=== PATIENT | female | born 1985 | race African-American/Black ===

== ENCOUNTER → 2020-09-30 11:35 | Outpatient (CLI) | payer OTHER, SELFPAY ==
--- NOTE | 2020-09-30 11:37 | DI.RAD.S_ITS ---
PROCEDURE: XR LUMBAR SPINE 2-3V INDICATIONS: low back pain TECHNIQUE: 3 views of the lumbar spine were acquired. COMPARISON: None. FINDINGS: Bones: 5 [id number] vertebrae are present. There is normal bony alignment. No vertebral body compression fractures. No suspicious bony lesions. Soft tissues: Overlying bowel gas pattern is normal. No suspicious soft tissue calcifications. 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 No compression fracture seen. Dictated by: Ernesto Casanova M.D. on 09/30/2020 at 12:47 Approved by: Ernesto Casanova M.D. on 09/30/2020 at 12:47
[2020-09-30 12:49] LABS: Hematocrit 40.9 % (36-46); Hemoglobin 13.7 g/dL (12.0-16.0); Mean Corpuscular HGB Conc 33.6 % (30-36); Mean Corpuscular Hemoglobin 25.9 PG (26-34); Mean Corpuscular Volume 77.2 fL (80-100); Platelet Count 240 X10^3/uL (150-400); Red Blood Cell Count 5.29 X10^6/uL (4.0-5.2); Red Cell Distribution Width 14.7 % (11.6-14.8); White Blood Cell Count 8.1 X10^3/uL (4.5-11.0)
[2020-09-30 13:17] LABS: Alanine Aminotransferase 37 IU/L (<35); Albumin 4.5 g/dL (3.5-5.0); Albumin Globulin Ratio 1.2 (1.0-2.8); Alkaline Phosphatase 72 U/L (38-126); Aspartate Aminotransferase 33 IU/L (14-36); BUN Creatinine Ratio 21.8 (6-22); Bilirubin Total 0.3 mg/dL (0.2-1.3); Blood Urea Nitrogen 12 mg/dL (7-17); Calcium 9.3 mg/dL (8.4-10.2); Carbon Dioxide 26 mmol/L (22-32); Chloride 103 mmol/L (98-107); Cholesterol 172 mg/dL (140-199); Estimated Glomerular Filt Rate > 60.0 mL/min (>60); Globulin 3.7 g/dL (1.7-4.1); Glucose 89 mg/dL (70-100); HDL Cholesterol 49 mg/dL (40-60); HEMOLYSIS < 15 (0-50); LDL Cholesterol Calculated 108 mg/dL (<100); Potassium 3.8 mmol/L (3.4-5.1); Sodium 138 mmol/L (137-145); Total Protein 8.2 g/dL (6.3-8.2); Triglycerides 77 mg/dL (35-150)
== END ==
PROVIDERS: PCP Nurse Practitioner Family; Referring Provider Nurse Practitioner Family; Visit Provider Nurse Practitioner Family
DX: Z00.00 Encounter for general adult medical examination without abnormal findings (principal); M54.5 Low back pain; Z13.6 Encounter for screening for cardiovascular disorders
CPT/HCPCS: 36415; 72100; 80053; 80061; 85027

== ENCOUNTER → 2020-12-23 07:52 | Outpatient (CLI) | payer OTHER, SELFPAY ==
[2020-12-23 09:05] LABS: Hemoglobin A1C% w Est Avg Glu 5.4 % (4.0-6.0)
[2020-12-23 09:06] LABS: Basophils Absolute Auto 0 /uL (0-100); Basophils Percent Auto 0.4 % (0-2); Eosinophils Absolute Auto 300 /uL (0-450); Eosinophils Percent Auto 2.9 % (2-4); Hematocrit 38.1 % (36-46); Hemoglobin 12.5 g/dL (12.0-16.0); Lymphocytes Absolute Auto 4000 /uL (1100-4500); Lymphocytes Percent Auto 39.9 % (25-40); Mean Corpuscular HGB Conc 32.9 % (30-36); Mean Corpuscular Hemoglobin 25.4 PG (26-34); Mean Corpuscular Volume 77.1 fL (80-100); Monocytes Absolute Auto 600 /uL (0-900); Monocytes Percent Auto 5.6 % (3-14); Neutrophils Absolute Auto 5100 /uL (1500-7000); Neutrophils Percent Auto 51.2 % (50-75); Red Blood Cell Count 4.94 X10^6/uL (4.0-5.2); Red Cell Distribution Width 14.7 % (11.6-14.8)
[2020-12-23 09:09] LABS: Alanine Aminotransferase 30 IU/L (<35); Albumin Globulin Ratio 1.3 (1.0-2.8); Alkaline Phosphatase 57 U/L (38-126); Aspartate Aminotransferase 27 IU/L (14-36); BUN Creatinine Ratio 15.9 (6-22); Bilirubin Total 0.3 mg/dL (0.2-1.3); Blood Urea Nitrogen 10 mg/dL (7-17); Carbon Dioxide 28 mmol/L (22-32); Chloride 105 mmol/L (98-107); Estimated Glomerular Filt Rate > 60.0 mL/min (>60); Globulin 3.1 g/dL (1.7-4.1); Glucose 108 mg/dL (70-100); HEMOLYSIS < 15 (0-50); Potassium 3.8 mmol/L (3.4-5.1); Sodium 139 mmol/L (137-145); Total Protein 7.1 g/dL (6.3-8.2)
[2020-12-23 09:16] LABS: Add Manual Diff / Slide Review SLIDE REVIEW
[2020-12-23 09:46] LABS: Platelet Estimate Adequate on smear
[2020-12-23 09:47] LABS: Hypochromasia 1+; Microcytosis 1+
[2020-12-23 09:48] LABS: Platelet Count 178 X10^3/uL (150-400)
== END ==
PROVIDERS: PCP Nurse Practitioner Family; Referring Provider Physician Assistant; Visit Provider Physician Assistant
DX: L83 Acanthosis nigricans (principal); D48.5 Neoplasm of uncertain behavior of skin
CPT/HCPCS: 36415; 80053; 83036; 85025

== ENCOUNTER → 2021-02-13 09:08 | Outpatient (CLI) | payer OTHER, SELFPAY ==
[2021-02-13 09:56] LABS: Add Manual Diff / Slide Review NO; Basophils Absolute Auto 0 /uL (0-100); Basophils Percent Auto 0.4 % (0-2); Eosinophils Absolute Auto 100 /uL (0-450); Hemoglobin 12.7 g/dL (12.0-16.0); Lymphocytes Absolute Auto 2900 /uL (1100-4500); Lymphocytes Percent Auto 27.6 % (25-40); Mean Corpuscular HGB Conc 32.7 % (30-36); Mean Corpuscular Hemoglobin 25.3 PG (26-34); Mean Corpuscular Volume 77.4 fL (80-100); Monocytes Absolute Auto 700 /uL (0-900); Monocytes Percent Auto 6.4 % (3-14); Neutrophils Absolute Auto 6700 /uL (1500-7000); Neutrophils Percent Auto 64.6 % (50-75); Platelet Count 269 X10^3/uL (150-400); Red Blood Cell Count 5.04 X10^6/uL (4.0-5.2); Red Cell Distribution Width 15.3 % (11.6-14.8); White Blood Cell Count 10.4 X10^3/uL (4.5-11.0)
[2021-02-13 10:31] LABS: Appearance Urine UA CLEAR; Bilirubin Urine UA NEGATIVE (NEGATIVE); Color Urine UA YELLOW; Glucose Urine UA NEGATIVE (Negative); Ketones Urine UA NEGATIVE (NEGATIVE); Leukocyte Esterase Urine UA NEGATIVE (NEGATIVE); Nitrite Urine UA NEGATIVE (Negative); Occult Blood Urine UA 2+ (Negative); Protein Urine UA NEGATIVE (Negative); Urobilinogen Urine UA 0.2 E.U./dL (0.2)
[2021-02-13 10:35] LABS: WBC Urine None Seen (0-5/HPF)
[2021-02-13 10:44] LABS: Amorphous Sediment Urine 3+; Bacteria Urine Many (>30); Mucus Urine 1+ (Negative); RBC Urine 1-5/HPF (0-5/HPF); Squamous Epithelial Cell Urine 5-10 /HPF (0-5/HPF)
[2021-02-13 13:20] LABS: Hepatitis B Surface Antigen NEGATIVE s/c (NEGATIVE); Rubella Antibody IgG 29.6 IU/mL (>15)
[2021-02-13 13:54] LABS: Culture Indicated Urine Cult Not Indicated
[2021-02-13 17:30] LABS: HIV 1 & 2 Ab/Ag 4th Gen Combo NEGATIVE (NEGATIVE); Hep C Virus Ab w/Reflex Quant NEGATIVE s/c (NEGATIVE)
[2021-02-14 07:48] LABS: RPR Screen Non Reactive (Non Reactive)
[2021-02-14 09:58] LABS: Varicella IgG Antibody 705 index (Immune >165)
[2021-02-15 08:43] LABS: Chlamydia trachomatis NAA Negative (Negative); Neisseria gonorrhoeae NAA Negative (Negative)
== END ==
PROVIDERS: PCP Nurse Practitioner Family; Referring Provider Specialist; Visit Provider Specialist
DX: Z34.81 Encounter for supervision of other normal pregnancy, first trimester (principal)
CPT/HCPCS: 36415; 80055; 81003; 81015; 86787; 86803; 86850; 86900; 86901; 87086; 87389; 87491; 87591

== ENCOUNTER → 2021-02-27 13:33 | Outpatient (CLI) | payer OTHER, SELFPAY | PROVIDERS: PCP Nurse Practitioner Family; Referring Provider Specialist; Visit Provider Specialist | DX: O09.529 Supervision of elderly multigravida, unspecified trimester (principal) | CPT/HCPCS: 36415; 81420 ==

== ENCOUNTER → 2021-03-06 13:13 | Outpatient (CLI) | payer OTHER, SELFPAY ==
[2021-03-06 16:05] LABS: Appearance Urine UA SL CLOUDY; Bilirubin Urine UA NEGATIVE (NEGATIVE); Color Urine UA YELLOW; Glucose Urine UA NEGATIVE (Negative); Ketones Urine UA 1+ (NEGATIVE); Leukocyte Esterase Urine UA NEGATIVE (NEGATIVE); Nitrite Urine UA NEGATIVE (Negative); Occult Blood Urine UA 1+ (Negative); Protein Urine UA TRACE (Negative); Specific Gravity Urine UA 1.015 (1.000-1.035); Urobilinogen Urine UA 0.2 E.U./dL (0.2)
[2021-03-06 16:11] LABS: Amorphous Sediment Urine 1+; Bacteria Urine Many (>30); Mucus Urine 2+ (Negative); RBC Urine 1-5/HPF (0-5/HPF); Squamous Epithelial Cell Urine 5-10 /HPF (0-5/HPF); WBC Urine 5-10/HPF (0-5/HPF)
[2021-03-06 16:12] LABS: Culture Indicated Urine Specimen Cultured
== END ==
PROVIDERS: PCP Nurse Practitioner Family; Referring Provider Specialist; Visit Provider Specialist
DX: Z34.90 Encounter for supervision of normal pregnancy, unspecified, unspecified trimester (principal); R31.9 Hematuria, unspecified
CPT/HCPCS: 81001; 87086

== ENCOUNTER → 2021-03-18 11:52 | Outpatient (ROUT) | payer OTHER, SELFPAY ==
[2021-03-18 13:49] LABS: Urine N gonorrhoeae NOT DETECTED
[2021-03-18 13:50] LABS: Urine Chlamydia NOT DETECTED
== END ==
PROVIDERS: PCP Nurse Practitioner Family; Visit Provider Specialist
DX: Z34.02 Encounter for supervision of normal first pregnancy, second trimester (principal); Z3A.14 14 weeks gestation of pregnancy
CPT/HCPCS: 87491; 87591

== ENCOUNTER 2021-04-24 09:14 | Inpatient (IN) | payer OTHER, SELFPAY ==
[2021-04-24] MEDS: OXYTOCIN PREMIX 30 UNIT/500 ML PLAST..BAG IV (10:44)
[2021-04-24] MEDS: LACTATED RINGERS 1,000 ML 100 ML IV ×2 (10:44→14:46)
[2021-04-24] MEDS: CEFAZOLIN 1 GM VIAL IV (10:53)
[2021-04-24 11:41] LABS: Add Manual Diff / Slide Review NO; Basophils Absolute Auto 0 /uL (0-100); Basophils Percent Auto 0.3 % (0-2); Eosinophils Absolute Auto 200 /uL (0-450); Eosinophils Percent Auto 1.4 % (2-4); Hematocrit 35.9 % (36-46); Hemoglobin 11.9 g/dL (12.0-16.0); Lymphocytes Absolute Auto 2000 /uL (1100-4500); Lymphocytes Percent Auto 14.7 % (25-40); Mean Corpuscular HGB Conc 33.1 % (30-36); Mean Corpuscular Hemoglobin 25.5 PG (26-34); Monocytes Absolute Auto 1000 /uL (0-900); Monocytes Percent Auto 7.5 % (3-14); Neutrophils Absolute Auto 10400 /uL (1500-7000); Neutrophils Percent Auto 76.1 % (50-75); Platelet Count 242 X10^3/uL (150-400); Red Blood Cell Count 4.66 X10^6/uL (4.0-5.2); Red Cell Distribution Width 15.3 % (11.6-14.8); White Blood Cell Count 13.6 X10^3/uL (4.5-11.0)
[2021-04-24] MEDS: fentaNYL 100 MCG/2 ML INJ IV (12:39)
[2021-04-24 12:49] LABS: COVID19 - ADMIT (NP swab/PCR) Negative (Negative)
--- NOTE | 2021-04-24 13:47 | PM.PREOP ---
Pre-operative Note COVID-19 COVID-19 status: Negative Result date/Date tested (Pos, Neg/Pending): 04/24/21 Interval Note History & Physical reviewed/Exam performed by Physician: Yes Changes to H&P: Yes H&P completed within 30 days and has changed as indicated here:: Retained placenta after passage of 19 week nonviable fetus
[2021-04-24 13:48] VITALS: BP 123/72
--- NOTE | 2021-04-24 15:00 | P.HPOB_ITS ---
History of Present Illness History of Present Illness Reason for admission: other (Premature rupture membranes) Narrative: Oralia Fuentes is a 36 year old female admitted for delivery of a nonviable 19 week gestation fetus with premature rupture of membranes. Patient on a routine OB visit complained of some light spotting. She was found to be 4- 5 cm dilated 80% effaced. Patient was given options to attempt cerclage, waiting for spontaneous vaginal delivery, induction of nonviable fetus. Patient went home to think about her options. She began leaking fluid. [facility] Medical History (Updated 04/24/21 @ 15:04 by Sheree Hogue MD) 19 weeks gestation of Allergies (~1990) Asthma (~1992) Chronic back pain (~2015) Dislocation of knee Hay fever Lactose intolerance Low back pain (~2015) Painful menstrual periods Recurrent sinus infections Right shoulder pain (~06/2020) Uneven pigmentation of skin (~2010) Surgical History (Updated 10/01/20 @ 19:48 by Yisel Jones) Anesthesia History of dilation and curettage (~07/05/19) Family History (Updated 02/07/21 @ 12:27 by Gabi Chowdhury RN) Father Diabetes mellitus Grandfather Diabetes mellitus Grandmother Hypertension Grandmother Diabetes mellitus Dementia Mother No problems noted. Grandfather Unknown family medical history Social History marital status: number of children: 0 household members: spouse (Deployed to [place] until 2020.) lives independently: Yes caregiver/support person: No housing: other ([facility]. 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.) occupational status: employed current occupational exposures/hazards: No cinda/anabaptism: [employer] special cinda needs: No seatbelt use: always working smoke detector in home: Yes fire extinguisher in home: Yes carbon monox detector in home: Yes firearms in home: No do you feel safe at home: Yes Smoking Status: Never smoker second hand exposure: No alcohol intake: former (Pre-: 2x/week) substance use type: does not use during the past year weight has: increased > 10 lbs well-balanced diet: daily or most days daily servings fruits/ve-4 caffeine: No Type(s) of exercise: walking and other (Had been doing PT x 1hr twice weekly until recently. Likes elliptical. ) frequency: 3-4 times per week Meds Home Medications and Allergies Home Medications Medication Instructions Recorded Confirmed Type albuterol sulfate 90 mcg/actuation 2 puff INHALATION Q6H PRN #8.5 g 09/20/20 04/22/21 Rx aerosol inhaler diclofenac sodium 1 % topical gel 2 g TOPICAL QID #100 g 09/20/20 04/22/21 Rx doxylamine succinate 25 mg tablet 25 mg PO BEDTIME PRN 02/07/21 04/22/21 History (Unisom (doxylamine)) prenat.vits,rachel,[id number] 1 tab PO DAILY 02/07/21 04/22/21 History pyridoxine (vitamin B6) 50 mg 50 mg PO BID 02/07/21 04/22/21 History tablet ondansetron 4 mg disintegrating 4 mg PO Q6H PRN #20 tab 02/13/21 04/22/21 Rx tablet Allergies Allergy/AdvReac Type Severity Reaction Status Date / Time lactose Allergy Intermediate GI upset & Verified 02/13/21 08:23 diarrhea tomato Allergy Mild Stys to Verified 02/13/21 08:23 eyes Review of Systems Review of Systems Narrative: Patient denies any bleeding or cramping. She has continual wetness in her underwear. No fevers. Exam Vital Signs (past 8 hours): Blood pressure 123/72, pulse 91, temperature 36.6? Narrative Exam Narrative: HEENT exam within normal limits. Lungs are clear to auscultation percussion. Heart is regular rate and rhythm no S3-S4 murmurs. Abdomen is soft, nontender. Uterus is just below the umbilicus and nontender. There are parts in the vaginal canal. Extremities without edema and nontender. Objective Labs Result Diagrams: 04/24/21 10:30 Labs: Laboratory Results - last 24 hr 04/24/21 04/24/21 04/24/21 09:30 10:15 10:30 WBC 13.6 H RBC 4.66 Hgb 11.9 L Hct 35.9 L MCV 77.0 L MCH 25.5 L MCHC 33.1 RDW 15.3 H Plt Count 242 Neut % (Auto) 76.1 H Lymph % (Auto) 14.7 L [place] % (Auto) 7.5 Eos % (Auto) 1.4 L Baso % (Auto) 0.3 Neut # (Auto) 48311 H Lymph # (Auto) 2000 [place] # (Auto) 1000 H Eos # (Auto) 200 Baso # (Auto) 0 SARS-CoV-2 (PCR) Negative Blood Type O Positive Antibody Screen Negative Assessment & Plan Assessment and plan (1) Premature cervical dilation in second trimester: Status: Acute (2) 19 weeks gestation of : Status: Acute (3) PROM with onset of labor more than 24 hours following rupture: Status: Acute Assessment & Plan narrative: Patient with here for delivery of a nonviable 19 week gestation fetus after Pprom. COVID-19 COVID-19 status: Negative Result date/Date tested (Pos, Neg/Pending): 04/24/21
--- NOTE | 2021-04-24 15:08 | PM.OBPRVD ---
Events: Premature Rupture Membrane (19 weeks) Labor & Delivery Delivery date: 04/24/21 Induction method: per pitocin protocol Delivery monitor: none Route of delivery: L&D Laceration Description: None Estimated blood loss (mL): 50 Anesthesia Type: Other (Fentanyl) Narrative: Patient came in with premature rupture of membranes at 19 weeks. She was started on Pitocin. The nonviable male infant delivered in breech presentation vaginally. The placenta did not deliver so she will be taken to the operating room for a curettage. So far there has been no significant vaginal bleeding. Baby 1: Infant gender: Male Presentation: breech Placenta delivery description: Curettage score (1 min): 0 score (5 min): 0 score (10 min): 0 weight: 10 oz Plan for aftercare: Other (Patient will be monitored for bleeding or infection signs with likely home later today.)
[2021-04-24] MEDS: CEFAZOLIN 1 GM VIAL 2 GM IV (15:20)
--- NOTE | 2021-04-24 15:51 | SUR.OPER ---
Lithotomy on padded OR bed, head on pillow, arms secured on padded arm boards at <90 degrees abduction. Legs secured in padded yellow fins stirrups.
[2021-04-24] MEDS: miSOPROStoL 200 MCG TABLET 800 MCG PR (15:57)
--- NOTE | 2021-04-24 15:58 | SUR.OPER ---
Retained placenta specimen sent to OB.
--- NOTE | 2021-04-24 16:10 | PM.OP.1 ---
Operative Date/Time/Diagnoses Date of procedure: 04/24/21 Time of procedure: 16:10 Pre-op diagnosis: Retained placenta post 19 week fetus delivery Post-op diagnosis: same Procedure & Clinicians Procedure: Uterine curettage Same procedure as scheduled: Yes Indications: Retained placenta post 19 week delivery Surgeon: Sheree Hogue Click Yes if Unassisted: Yes Anesthesia Type: General Operative Notes Findings: Retained placenta no vaginal, perineal or cervical tears Closure Type: not applicable Estimated Blood Loss (mL): 1,000 Blood products transfused: none Procedure in detail: Patient was brought to the operating room where [facility] after undergoing general anesthesia. She had 2 g of Ancef in prior to beginning the case. Warming was with blankets. Pulsatile stockings were in place and functional. A check system was reviewed with the staff in the room prior to the procedure. The patient was prepped and draped in the usual sterile fashion. Bladder was drained with an in and out catheter. A speculum placed in vagina and a ring forcep was placed on the anterior lip of the cervix. Curettings were performed until the placenta was loosened and removed. The uterus was curetted until there were no apparent tissue fragments left. Patient received IM and IV Pitocin. She also received rectal 800 micro g of Cytotec. Bleeding seemed to be under control at the end of the case. Patient went to recovery room in stable condition. Counts of instruments and sponges were correct. Complications: none Post-operative Condition: stable Disposition: other ( Center) Plan for aftercare: Monitor for bleeding or evidence of infection. Home when stable.
[2021-04-24 16:16] VITALS: BP 118/64; PULSE 100; RESP 16; TEMP 36.4; O2SAT 97
[2021-04-24 16:21] VITALS: BP 118/65; PULSE 96; RESP 16; O2SAT 96
[2021-04-24 16:26] VITALS: BP 123/79; PULSE 96; RESP 20; O2SAT 97
[2021-04-24 16:31] VITALS: BP 127/72; PULSE 100; RESP 16; TEMP 36.6; O2SAT 96
[2021-04-24] MEDS: IBUPROFEN 600 MG TABLET PO (18:26)
[2021-04-24] MEDS: ACETAMINOPHEN 325 MG TABLET 650 MG PO (18:26)
--- NOTE | 2021-04-24 19:42 | PM.OBDS.1 ---
Discharge Providers Provider Date of admission: 04/24/21 09:14 Discharge Date: 04/24/21 Primary care physician: KYLEE Kelley Consults: 04/24/21 09:38 Consult to Anesthesiology Urgent Comment: Consulting Provider: Anesthesiologist Reason for consultation: epidural Has provider been notified: No Discharge provider: Sheree Hogue MD Summary Hospital Course Date Patient Seen: 04/24/21 Time Patient Seen: 19:43 Diagnoses: 19 week gestation with PPROM, spontaneous vaginal delivery of nonviable fetus, retained placenta requiring uterine curettage Hospital Course: Patient arrived on Labor and delivery after having PPROM from cervical incompetence. IV antibiotics and Pitocin were begun. Peripartum Data Infant Delivery Method: Natural Vaginal Laceration Description: None Procedures: Pitocin augmentation of labor, vaginal delivery of previable fetus, uterine curettage for retained placenta complications: retained placenta 1: Gender: Male Disposition of : (Pre viable) Discharge Diagnosis (1) Premature cervical dilation in second trimester: Status: Acute (2) 19 weeks gestation of : Status: Acute (3) PROM with onset of labor more than 24 hours following rupture: Status: Acute (4) Retained placenta with hemorrhage, condition: Status: Acute Status at Discharge Cognitive/behavioral status at discharge: oriented Functional status at discharge: independent ambulation Overall status at discharge: patient is progressing back to baseline Time Spent with Patient Time attestation: Total time spent providing and/or coordinating discharge services: Time spent: Less than 30 minutes Objective Labs Result Diagrams: 04/24/21 10:30 Labs: Laboratory Results - last 24 hr 04/24/21 04/24/21 04/24/21 09:30 10:15 10:30 WBC 13.6 H RBC 4.66 Hgb 11.9 L Hct 35.9 L MCV 77.0 L MCH 25.5 L MCHC 33.1 RDW 15.3 H Plt Count 242 Neut % (Auto) 76.1 H Lymph % (Auto) 14.7 L [place] % (Auto) 7.5 Eos % (Auto) 1.4 L Baso % (Auto) 0.3 Neut # (Auto) 27593 H Lymph # (Auto) 2000 [place] # (Auto) 1000 H Eos # (Auto) 200 Baso # (Auto) 0 SARS-CoV-2 (PCR) Negative Blood Type O Positive Antibody Screen Negative Exam Vital Signs (past 8 hours): - 04/24/21 13:48 04/24/21 16:16 04/24/21 16:21 Temperature 97.6 F Pulse Rate 100 H 96 H Respiratory Rate 16 16 Blood Pressure 123/72 118/64 118/65 Pulse Oximetry 97 96 04/24/21 16:26 04/24/21 16:31 Temperature 97.8 F Pulse Rate 96 H 100 H Respiratory Rate 20 16 Blood Pressure 123/79 127/72 Pulse Oximetry 97 96 Oxygen Delivery Method Room Air Narrative Exam Narrative: Patient's abdomen is soft, nontender. Uterus is firm, at U -3, nontender. Bleeding is mild. Extremities without edema and nontender. Patient's blood type is O-positive and she is rubella immune Discharge Plan Discharge Plan Patient Disposition: Home Discharge orders & Medications Prescriptions: New hydrocodone-acetaminophen 5-325 mg Tablet 2 tab PO Q4HR PRN (Reason: Pain, Severe (7-10)) Qty: 20 RF: 0 ferrous sulfate 325 mg (65 mg iron) Tablet 325 mg PO DAILY Qty: 30 RF: 0 ibuprofen 600 mg Tablet 600 mg PO Q6HR PRN (Reason: Pain, Mild (1-3)) Qty: 30 RF: 0 Continued prenat.vits,rachel,[id number] Tablet 1 tab PO DAILY RF: 0 pyridoxine (vitamin B6) 50 mg tablet 50 mg PO BID RF: 0 Unisom (doxylamine) 25 mg tablet 25 mg PO BEDTIME PRNRF: 0 diclofenac sodium 1 % gel 2 g topical QID Qty: 100 RF: 0 albuterol sulfate 90 mcg/actuation HFA aerosol inhaler 2 puff inhalation Q6H PRN (Reason: shortness of breath or wheezing) Qty: 8.5 RF: 0 ondansetron 4 mg tablet,disintegrating 4 mg PO Q6H PRN (Reason: nausea and vomiting) Qty: 20 RF: 2 Follow up/Referrals: Sae Win ARNP [Primary Care Provider] - Sheree Hogue MD [Physician] - 2 Weeks Diet/Activity/Treatments Diet: Regular Activity: Nothing in vagina for 4 weeks Skin/Wound/Dressing Care Report to your healthcare provider any signs of infection, such as:: chills, fever and increased pain Discharge Data Primary Care Provider: Sae Win Attending Provider: Sheree Hogue
== END 2021-04-24 20:40 | disposition home or self-care (01) | DRG 797 ==
PROVIDERS: Admitting Provider Specialist; PCP Nurse Practitioner Family; Referring Provider Specialist; Visit Provider Specialist
PROC: 10E0XZZ Delivery of Products of Conception, External Approach (ICD-10-PCS; CPT 58120; principal; 2021-04-24 13:30)
DX: O60.12X0 Preterm labor second trimester with preterm delivery second trimester, not applicable or unspecified (principal); O72.2 Delayed and secondary postpartum hemorrhage; Z37.1 Single stillbirth; Z3A.19 19 weeks gestation of pregnancy; O32.1XX0 Maternal care for breech presentation, not applicable or unspecified; Z20.822 Contact with and (suspected) exposure to COVID-19
CPT/HCPCS: 36415; 59050; 59821; 85025; 86850; 86900; 86901; 87635; C9803; G0378; G0379; J0690; J2405; J2590; J2704; J3010; S0191

== ENCOUNTER → 2021-07-18 13:55 | Outpatient (CLI) | payer OTHER, SELFPAY ==
[2021-07-18 16:56] LABS: Progesterone, Total 9.22 ng/mL
== END ==
PROVIDERS: PCP Nurse Practitioner Family; Referring Provider Specialist; Visit Provider Specialist
DX: N92.6 Irregular menstruation, unspecified (principal)
CPT/HCPCS: 36415; 84144

== ENCOUNTER → 2021-09-29 16:10 | Outpatient (CLI) | payer OTHER, SELFPAY ==
[2021-09-29 17:07] LABS: Hematocrit 37.6 % (36-46); Hemoglobin 12.6 g/dL (12.0-16.0); Mean Corpuscular HGB Conc 33.5 % (30-36); Mean Corpuscular Hemoglobin 25.1 PG (26-34); Mean Corpuscular Volume 75.2 fL (80-100); Platelet Count 264 X10^3/uL (150-400); Red Cell Distribution Width 16.5 % (11.6-14.8); White Blood Cell Count 8.1 X10^3/uL (4.5-11.0)
[2021-09-29 17:09] LABS: Alanine Aminotransferase 24 IU/L (<35); Albumin 4.4 g/dL (3.5-5.0); Albumin Globulin Ratio 1.3 (1.0-2.8); Alkaline Phosphatase 60 U/L (38-126); Aspartate Aminotransferase 27 IU/L (14-36); Bilirubin Total 0.5 mg/dL (0.2-1.3); Blood Urea Nitrogen 12 mg/dL (7-17); Calcium 9.4 mg/dL (8.4-10.2); Carbon Dioxide 30 mmol/L (22-32); Chloride 105 mmol/L (98-107); Cholesterol 133 mg/dL (140-199); Estimated Glomerular Filt Rate > 60.0 mL/min (>60); Globulin 3.4 g/dL (1.7-4.1); Glucose 92 mg/dL (70-100); HDL Cholesterol 49 mg/dL (40-60); HEMOLYSIS < 15 (0-50); LDL Cholesterol Calculated 67 mg/dL (<100); Potassium 3.8 mmol/L (3.4-5.1); Sodium 141 mmol/L (137-145); Total Protein 7.8 g/dL (6.3-8.2); Triglycerides 86 mg/dL (35-150)
== END ==
PROVIDERS: Specialist; PCP Nurse Practitioner Family; Referring Provider Nurse Practitioner Family; Visit Provider Nurse Practitioner Family
DX: Z00.00 Encounter for general adult medical examination without abnormal findings (principal); Z13.6 Encounter for screening for cardiovascular disorders; Z13.79 Encounter for other screening for genetic and chromosomal anomalies
CPT/HCPCS: 36415; 80053; 80061; 85027; 85660

== ENCOUNTER 2021-10-02 10:19 | Emergency (ER) | payer OTHER, SELFPAY ==
--- NOTE | 2021-10-02 10:30 | PC.NURSE ---
Unable to locate pt in lobby
[2021-10-02 11:01] VITALS: BP 139/67; PULSE 99; RESP 16; TEMP 37.2; O2SAT 100
--- NOTE | 2021-10-02 11:48 | ED.BACK ---
HPI - Back Pain/Injury General Chief Complaint: Back Pain/Injury Stated Complaint: Back/left leg pain x 2 weeks Time Seen by Provider: 10/02/21 11:29 Source: patient Mode of arrival: Ambulatory History of Present Illness HPI Narrative: Patient is a 36-year-old female here for evaluation of left-sided lower back pain and pain radiating to her left leg. Symptoms started approximately 2 weeks ago. There was not 1 specific incident that started the symptoms however she thinks that it began after she went to the gym. Has been consistent. Has been taking Tylenol and ibuprofen with minimal home. She also has muscle relaxers which she states are not helping her symptoms as well. No bowel changes. No urinary symptoms. No fevers. No abdominal pain. Related Data Home Medications Medication Instructions Recorded Confirmed prenat.vits,rachel,[id number] 1 tab PO DAILY 02/07/21 10/01/21 Previous Rx's Medication Instructions Recorded albuterol sulfate 90 mcg/actuation 2 puff INHALATION Q6H PRN #8.5 g 09/20/20 aerosol inhaler diclofenac sodium 1 % topical gel 2 g TOPICAL QID #100 g 09/20/20 ferrous sulfate 325 mg (65 mg 325 mg PO DAILY #30 tab 04/24/21 iron) tablet medroxyprogesterone 10 mg tablet 20 mg PO DAILY #14 tab 06/12/21 clomiphene citrate 50 mg tablet 100 mg PO DAILY #10 tab 09/10/21 methocarbamol 500 mg tablet See Rx Instructions PO Q6-8H PRN 09/19/21 #30 tab cyclobenzaprine 5 mg tablet 5 mg PO TID PRN #20 tab 10/01/21 hydrocodone 5 mg-acetaminophen 325 1 tab PO Q4-6H PRN #10 tab 10/02/21 mg tablet prednisone 20 mg tablet 20 mg PO DAILY 5 Days #5 tab 10/02/21 Allergies Allergy/AdvReac Type Severity Reaction Status Date / Time lactose Allergy Intermediate GI upset & Verified 09/19/21 17:48 diarrhea tomato Allergy Mild Stys to Verified 09/19/21 17:48 eyes Review of Systems Constitutional Constitutional: Denies fever(s) Gastrointestinal Gastrointestinal: Reports system reviewed and no additional complaints, except as documented Genitourinary Genitourinary: Reports system reviewed and no additional complaints, except as documented Musculoskeletal Musculoskeletal: Reports system reviewed and no additional complaints, except as documented and Reports as per HPI Integumentary/Breasts Skin/Breast: Reports system reviewed and no additional complaints, except as documented Neurologic Neurologic: Reports system reviewed and no additional complaints, except as documented Hematologic/Lymphatic Hematologic/Lymphatic: Reports system reviewed and no additional complaints, except as documented Patient History Medical History Allergies (~1990) Asthma (~1992) Chronic back pain (~2015) Dislocation of knee Hay fever Lactose intolerance Low back pain (~2015) Painful menstrual periods Recurrent sinus infections Right shoulder pain (~06/2020) Uneven pigmentation of skin (~2010) Surgical History Anesthesia History of dilation and curettage (~07/05/19) Family History Father Diabetes mellitus Grandfather Diabetes mellitus Grandmother Hypertension Grandmother Diabetes mellitus Dementia Mother No problems noted. Grandfather Unknown family medical history Social History marital status: number of children: 0 household members: spouse (Deployed to [place] until 2020.) lives independently: Yes caregiver/support person: No [facility]: [facility]. 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.) occupational status: employed current occupational exposures/hazards: No cinda/scientologist: Hoah[employer] special cinda needs: No seatbelt use: always working smoke detector in home: Yes fire extinguisher in home: Yes carbon monox detector in home: Yes firearms in home: No do you feel safe at home: Yes Smoking Status: Never smoker second hand exposure: No alcohol intake: former (Pre-: 2x/week) substance use type: does not use during the past year weight has: increased > 10 lbs well-balanced diet: daily or most days daily servings fruits/ve-4 caffeine: No Type(s) of exercise: walking and other (Had been doing PT x 1hr twice weekly until recently. Likes elliptical. ) frequency: 3-4 times per week Smoking Status: Never smoker alcohol intake frequency: 0-2 drinks per day Substance Use Type: does not use Exam Initial Vital Signs Initial Vital Signs: Vital Signs Temperature 99.0 F 10/02/21 11:01 Pulse Rate 99 H 10/02/21 11:01 Respiratory Rate 16 10/02/21 11:01 Blood Pressure 139/67 10/02/21 11:01 Pulse Oximetry 100 10/02/21 11:01 HENMT Head: normal to inspection and normocephalic Back/Spine/Pelvis Thoracic/Lumbar Spine: paraspinal tenderness and No lumbar spinal tenderness Sacroiliac Joints: tender to palpation left Skin General: no rashes or lesions noted Neuro General: patient alert, patient awake and moves all extremities Extrem General: normal to inspection and capillary refill normal Psych Appearance: grossly normal and well kempt Course Orders Ordered: Discontinued Medications Hydrocodone Bitart/Acetaminophen (Hydrocodone/Acet 5/325 Tablet) 1 tab PO NOW ONE Stop: 10/02/21 12:10 Last Admin: 10/02/21 12:32 Dose: 1 tab Documented by: ELAINE Ketorolac Tromethamine (Ketorolac 30 Mg/Ml Vial) 30 mg IM NOW ONE Stop: 10/02/21 12:10 Last Admin: 10/02/21 12:32 Dose: 30 mg Documented by: ELAINE Vital Signs Vital signs: Vital Signs - 8 hr 10/02/21 11:01 10/02/21 12:51 Temperature 99.0 F Pulse Rate 99 H 87 Respiratory Rate 16 17 Blood Pressure 139/67 128/77 Pulse Oximetry 100 99 MDM - Back Pain/Injury MDM Narrative Medical decision making narrative: Two weeks of left-sided lower back pain with radiculopathy. Low suspicion for fracture/cauda equina. No indication for radiologic studies today. We did discuss the use of anti-inflammatories and heat in ice and massage and staying active. Will provide stronger pain medication to help her sleep at night but a very short course of this. Informed her that she should follow-up with her primary doctor to discuss further workup to include further imaging and physical therapy if needed. She was given return precautions. She expressed understanding and agreement. Discharge Plan Departure Patient Disposition: Home Clinical Impression: Lumbar back pain with radiculopathy affecting left lower extremity Instructions: DI for Back Pain With Sciatica Activity Restrictions/Additional Instructions: Continue to take all of your medications as directed. Keep your appointment that you have scheduled with your primary doctor for next week. After the course of prednisone that you were given today please start taking a nonsteroidal anti-inflammatories such as Motrin/Naprosyn as directed. You can take Tylenol in addition to this. Return to the emergency department for any new symptoms. Prescriptions: New prednisone 20 mg tablet 20 mg PO DAILY 5 Days Qty: 5 0RF hydrocodone-acetaminophen 5-325 mg tablet 1 tab PO Q4-6H PRN (Reason: pain) Qty: 10 0RF No Action methocarbamol 500 mg tablet See Rx Instructions PO Q6-8H PRN (Reason: muscle spasm) Qty: 30 0RF Rx Instructions: 1-2 tablets PO every 6-8 hours PRN; cyclobenzaprine 5 mg tablet 5 mg PO TID PRN (Reason: muscle spasm) Qty: 20 0RF prenat.vits,rachel,[id number]-poezs Tablet 1 tab PO DAILY 0RF medroxyprogesterone 10 mg tablet 20 mg PO DAILY Qty: 14 2RF diclofenac sodium 1 % gel 2 g topical QID Qty: 100 0RF Rx Instructions: apply to right shoulder albuterol sulfate 90 mcg/actuation HFA aerosol inhaler 2 puff inhalation Q6H PRN (Reason: shortness of breath or wheezing) Qty: 8.5 0RF clomiphene citrate 50 mg tablet 100 mg PO DAILY Qty: 10 2RF Rx Instructions: Take 2 tablets by mouth days 3-7 of cycle. ferrous sulfate 325 mg (65 mg iron) Tablet 325 mg PO DAILY Qty: 30 0RF Referrals: Sae Win ARNP [Primary Care Provider] -
[2021-10-02] MEDS: KETOROLAC 30 MG/ML VIAL IM (12:32)
[2021-10-02] MEDS: HYDROCODONE/ACET 5/325 TABLET 1 TAB PO (12:32)
[2021-10-02 12:51] VITALS: BP 128/77; PULSE 87; RESP 17; O2SAT 99
== END 2021-10-02 12:53 | disposition home or self-care (01) ==
PROVIDERS: Emergency Provider Emergency Medicine; PCP Nurse Practitioner Family
DX: M54.50 Low back pain, unspecified (principal); M54.16 Radiculopathy, lumbar region
CPT/HCPCS: 96372; 99283; J1885

== ENCOUNTER → 2021-10-07 09:51 | Outpatient (CLI) | payer OTHER, SELFPAY ==
--- NOTE | 2021-10-07 09:54 | DI.RAD.S_ITS ---
PROCEDURE: XR LUMBAR SPINE 2-3V INDICATIONS: Low back pain L I TECHNIQUE: 3 views of the lumbar spine were acquired. COMPARISON: [facility], CR, XR LUMBAR SPINE 2-3V, 09/30/2020, 11:56. FINDINGS: Bones: 5 [id number] vertebrae are present. No vertebral body compression fractures. No suspicious bony lesions. Minimal dextroconvex scoliotic curvature is seen. Is No focal AP alignment abnormality is seen. The disc heights are relatively well preserved. Lower lumbar spine facet arthropathy is seen. Soft tissues: Overlying bowel gas pattern is normal. No suspicious soft tissue calcifications. IMPRESSION: No significant plain film abnormality can be seen, with note made of minimal dextroconvex scoliotic curvature and lower lumbar spine facet arthropathy. If it would be helpful for clinical management decision making, please consider a dedicated, scheduled lumbar spine MRI for further evaluation (assuming that there is no contraindication). Dictated by: Memo Arreola M.D. on 10/07/2021 at 10:12 Approved by: Memo Arreola M.D. on 10/07/2021 at 10:13
== END ==
PROVIDERS: PCP Nurse Practitioner Family; Referring Provider Nurse Practitioner Family; Visit Provider Nurse Practitioner Family
DX: S46.911A Strain of unspecified muscle, fascia and tendon at shoulder and upper arm level, right arm, initial encounter (principal); M47.816 Spondylosis without myelopathy or radiculopathy, lumbar region; X58.XXXA Exposure to other specified factors, initial encounter
CPT/HCPCS: 72100

== ENCOUNTER → 2021-10-13 16:58 | Outpatient (CLI) | payer OTHER, SELFPAY | PROVIDERS: Specialist; PCP Nurse Practitioner Family; Referring Provider Nurse Practitioner Family; Visit Provider Nurse Practitioner Family | DX: N97.0 Female infertility associated with anovulation (principal) | CPT/HCPCS: 36415; 84144 ==

== ENCOUNTER → 2021-12-02 17:04 | Outpatient (CLI) | payer OTHER, SELFPAY ==
--- NOTE | 2021-12-02 17:05 | DI.MRI.S_ITS ---
PROCEDURE: MR LUMBAR SPINE WO CON INDICATIONS: pain, numbness TECHNIQUE: Noncontrast sagittal T1 spin echo and T2 fast echo, sagittal STIR, and T2 fast spin echo through the lumbar spine. In cases with scoliosis, additional coronal T2 fast spin echo may be performed. COMPARISON: [facility], CR, XR LUMBAR SPINE 2-3V, 10/07/2021, 10:03. FINDINGS: Image quality: Excellent. Alignment and Curvature: There is normal bony alignment. Bone Marrow: Marrow is of normal overall signal. No acute vertebral body compression fractures. Spinal Cord: Conus medullaris terminates at the L1-L2 level. Visualized cord demonstrates normal signal and size. Paraspinous Soft Tissues: No paravertebral masses. T12-L1: No canal stenosis or foraminal stenosis. L1-L2: No canal stenosis or foraminal stenosis. L2-L3: Mild facet hypertrophy. No canal stenosis or foraminal stenosis. L3-L4: Mild disc bulge. Mild facet hypertrophy. Mild bilateral foraminal narrowing. No canal stenosis. L4-L5: Disc bulge. Facet hypertrophy. No canal stenosis. Mild right foraminal narrowing and mild to moderate left foraminal narrowing. There is minimal flattening deformity on the exiting left L4 nerve root. L5-S1: Annulus tear associated with mild left paracentral disc protrusion. Disc material abuts the left S1 nerve root in the left lateral recess. Bilateral facet hypertrophy. Mild right foraminal narrowing. Moderate left foraminal narrowing with mild flattening deformity on the exiting left L5 nerve root. IMPRESSION: 1. Multilevel facet arthropathy. 2. At L5-S1 there is annulus tear associated with mild left paracentral disc protrusion, which abuts the left S1 nerve root in the left lateral recess. Question: Does this patient have a left S1 radiculopathy? 3. Multilevel foraminal narrowing as described above. Dictated by: Reddy Mcgregor M.D. on 12/02/2021 at 17:45 Approved by: Reddy Mcgregor M.D. on 12/02/2021 at 17:50
== END ==
PROVIDERS: PCP Nurse Practitioner Family; Referring Provider Nurse Practitioner Family; Visit Provider Nurse Practitioner Family
DX: M47.26 Other spondylosis with radiculopathy, lumbar region; M47.27 Other spondylosis with radiculopathy, lumbosacral region; M51.17 Intervertebral disc disorders with radiculopathy, lumbosacral region; M48.061 Spinal stenosis, lumbar region without neurogenic claudication; M48.07 Spinal stenosis, lumbosacral region
CPT/HCPCS: 72148

== ENCOUNTER → 2022-03-29 10:58 | Outpatient (CLI) | payer SELFPAY ==
[2022-03-29 12:11] LABS: Final Volume 0.5 mL; Semen 30 min. Liquification? Yes
== END ==
PROVIDERS: Referring Provider Obstetrics & Gynecology; Visit Provider Obstetrics & Gynecology
DX: Z31.9 Encounter for procreative management, unspecified (principal)
CPT/HCPCS: 58323

== ENCOUNTER → 2022-04-28 14:06 | Outpatient (CLI) | payer SELFPAY ==
[2022-04-28 14:19] LABS: Initial Volume 1.75 mL; Semen 30 min. Liquification? Yes
[2022-04-28 15:08] LABS: Final Volume 0.5 mL
== END ==
PROVIDERS: Referring Provider Obstetrics & Gynecology; Visit Provider Obstetrics & Gynecology
DX: Z31.9 Encounter for procreative management, unspecified (principal)
CPT/HCPCS: 58323